=== PATIENT | male | born 1980 | race Two or more races ===

== ENCOUNTER 2022-02-28 15:37 | Emergency (ER) | payer OTHER ==
[~2022-02-28] VITALS: Ht 165.1 cm; Wt 68.0 kg
== END 2022-02-28 21:54 | disposition home or self-care (01) ==
LOC: ER 15:37
DX: E86.0 Dehydration (principal); R10.13 Epigastric pain; Z20.822 Contact with and (suspected) exposure to COVID-19

== ENCOUNTER → 2022-03-01 | Emergency (ER) | payer OTHER ==
[~2022-03-01] VITALS: Ht 167.6 cm; Wt 63.5 kg
== END | disposition left against medical advice (07) ==
LOC: ER 23:05
DX: Z53.21 Procedure and treatment not carried out due to patient leaving prior to being seen by health care provider (principal)

== ENCOUNTER → 2022-03-01 | Emergency (ER) | payer OTHER ==
[~2022-03-01] VITALS: Ht 167.6 cm; Wt 68.0 kg
== END | disposition left against medical advice (07) ==
LOC: ER 06:47
DX: Z53.21 Procedure and treatment not carried out due to patient leaving prior to being seen by health care provider (principal)